=== PATIENT | male | born 1955 | race Two or more races ===

== ENCOUNTER 2020-05-20 09:47 | Emergency (ER) | payer MEDICARE, OTHER ==
[~2020-05-20] VITALS: Ht 170.2 cm; Wt 51.3 kg
[2020-05-20] MEDS ORDERED: ONDANSETRON HCL/PF 4 MG/2 ML VIAL IVP ONE (10:00)
[2020-05-20] MEDS ORDERED: MORPHINE SULFATE INJ 2 MG/ML DISP.SYRIN IV ONE (10:00)
[2020-05-20] MEDS ORDERED: IV NS 0.9% 500 ML BAG IV ONE (10:00)
[2020-05-20] MEDS ORDERED: MORPHINE SULFATE INJ 4 MG/ML DISP.SYRIN ONE (10:34)
[2020-05-20] MEDS ORDERED: ONDANSETRON HCL/PF 4 MG/2 ML VIAL ONE (10:34)
[2020-05-20 10:38] LABS: BASOPHILS # (AUTO) 0.1 /CMM (0.0-0.2); BASOPHILS % (AUTO) 0.9 % (0.0-2.0); EOSINOPHILS % (AUTO) 1.4 % (0.0-6.0); HEMATOCRIT 42 % (39-51); HEMOGLOBIN 14.1 g/dL (13.5-17.5); LYMPHOCYTES % (AUTO) 26.3 % (20.0-44.0); MEAN CORPUSCULAR HGB CONC 34 g/dl (31.0-36.0); MEAN CORPUSCULAR VOLUME 89 fL (80-96); MONOCYTES # (AUTO) 0.6 /CMM (0.1-1.30); MONOCYTES % (AUTO) 8.1 % (2.0-12.0); NEUTROPHILS # (AUTO) 4.8 /CMM (1.8-8.9); NEUTROPHILS % (AUTO) 63.3 % (43.0-81.0); PLATELET COUNT (AUTO) 247 /CMM (150-450); RED BLOOD CELL COUNT(AUTO) 4.73 MIL/uL (4.5-6.0); WHITE BLOOD COUNT (AUTO) 7.5 K/uL (4.3-11.0)
--- NOTE | 2020-05-20 10:46 | NUR ---
Patient awake alert c/c back pain and abd . pain patient has saline lock LAC ,lab draw done and started IVF infusing well .
--- NOTE | 2020-05-20 11:16 | NUR ---
Patient concerned about his belonging wallet ,i did called his Ning [phone] she states I have his wallet coffee shop aide given back to me " Patient appreciated i called his to confirmed .
--- NOTE | 2020-05-20 11:53 | NUR ---
Patient awake alert non distress UA obtained and send to lab .
[2020-05-20 12:11] LABS: ALBUMIN 3.8 g/dL (3.4-5.0); BILIRUBIN,DIRECT 0.2 mg/dL (0.0-0.2); BILIRUBIN,TOTAL 0.4 mg/dL (0.2-1.0); CALCIUM, SERUM 8.6 mg/dL (8.5-10.1); TOTAL PROTEIN, SERUM 6.8 g/dL (6.4-8.2)
[2020-05-20 13:03] LABS: APPEARANCE,URINE CLEAR (CLEAR); BILIRUBIN,URINE NEGATIVE (NEGATIVE); BLOOD, URINE TRACE-INTA Ery/uL (NEGATIVE); COLOR,URINE YELLOW (YELLOW); KETONES,URINE NEGATIVE (NEGATIVE); LEUKOCYTE ESTERASE ,URINE NEGATIVE (NEGATIVE); NITRITE, URINE NEGATIVE (NEGATIVE); PH,URINE 6.5 (5.0-8.0); PROTEIN,URINE NEGATIVE (NEGATIVE); UGLUCOSE NEGATIVE (NEGATIVE); UROBILINOGEN,URINE 0.2 EU/dL (0.2)
[2020-05-20 13:07] LABS: BACTERIA,URINE Rare /HPF (None Seen); SQUAMOUS EPITHELIAL CELL,UR Few /HPF (None Seen); WBC,URINE 0-2 /HPF (0-3)
--- NOTE | 2020-05-20 13:07 | NUR ---
Ana Galvin home intructuion given agrees to see PMD in 1 day I removed saline lock LAc noted cath intact no edema no pain ,patient product picker by his for Dc home .
[2020-05-20 13:31] VITALS: BP 162/103
== END 2020-05-20 13:31 | disposition home or self-care (01) ==
LOC: ER 09:55
DX: N23 Unspecified renal colic (principal); R94.31 Abnormal electrocardiogram [ECG] [EKG]; Z90.89 Acquired absence of other organs; Z87.442 Personal history of urinary calculi
CPT/HCPCS: 36415; 71045; 74176; 80048; 80076; 81001; 83690; 85025; 93005; 96374; 96375; 99285; J2270; J2405; J7030; 81000-TC

== ENCOUNTER 2020-05-22 11:37 | Emergency (ER) | payer MEDICARE, OTHER ==
[~2020-05-22] VITALS: Ht 172.7 cm; Wt 49.0 kg
--- NOTE | 2020-05-22 11:40 | NUR ---
bib39, from home, c/o weakness, shaking, having methadone withdrawal. Patient a/ox4,breathing even and unlabored, no sob noted, needs attended, kept comfortable.
--- NOTE | 2020-05-22 11:41 | NUR ---
YINA DONATO [facility] [phone]
[2020-05-22] MEDS ORDERED: CLONIDINE HCL 0.1 MG TABLET PO ONE (12:00)
[2020-05-22] MEDS ORDERED: hydrOXYzine HCL INJ 50 MG/ML VIAL IM ONE (12:00)
[2020-05-22] MEDS ORDERED: ONDANSETRON 4 MG TAB.RAPDIS SL ONE (12:00)
[2020-05-22] MEDS ORDERED: CLONIDINE HCL 0.1 MG TABLET ONE (12:20)
[2020-05-22] MEDS ORDERED: ONDANSETRON 4 MG TAB.RAPDIS ONE (12:20)
--- NOTE | 2020-05-22 12:26 | NUR ---
[facility]. [phone] JUICE
--- NOTE | 2020-05-22 12:38 | NUR ---
CALLED FOR MOBILE APPLICATION DEVELOPER. ETA 30 MINS.
--- NOTE | 2020-05-22 12:57 | NUR ---
Patient given medications to help with withdrawals. in the waiting room. Prescriptions explained and given to the patient. Patient discharged to home in stable condition. Written and verbal after care instructions given. Patient verbalizes understanding of instruction.
[2020-05-22 12:58] VITALS: BP 132/80
== END 2020-05-22 12:59 | disposition home or self-care (01) ==
LOC: ER 12:19
DX: F11.23 Opioid dependence with withdrawal (principal); R53.1 Weakness; R11.0 Nausea; Z87.442 Personal history of urinary calculi; Z90.89 Acquired absence of other organs
CPT/HCPCS: 99283; Q0162; J3410

== ENCOUNTER 2020-11-20 15:00 | Inpatient (IN) | payer MEDICARE, OTHER ==
[~2020-11-20] VITALS: Ht 175.3 cm; Wt 51.3 kg
--- NOTE | 2020-11-20 15:10 | NUR ---
[id number], from home, c/o flank pain x 2 days, Hx kidney stone, 05/19 PS. Patient a/ox4, breathing even and unlabored, no sob noted. Needs attended. Kept comfortable.
[2020-11-20] MEDS ORDERED: KETOROLAC TROMETHAMINE 15 MG/ML VIAL ONE (15:56)
[2020-11-20 16:00] LABS: BASOPHILS % (AUTO) 0.1 % (0.0-2.0); HEMATOCRIT 38 % (39-51); HEMOGLOBIN 12.8 g/dL (13.5-17.5); LYMPHOCYTES # (AUTO) 0.9 /CMM (0.8-4.8); LYMPHOCYTES % (AUTO) 12.4 % (20.0-44.0); MEAN CORPUSCULAR HGB CONC 34 g/dl (31.0-36.0); MEAN CORPUSCULAR VOLUME 86 fL (80-96); MONOCYTES # (AUTO) 0.4 /CMM (0.1-1.30); MONOCYTES % (AUTO) 5.4 % (2.0-12.0); NEUTROPHILS # (AUTO) 5.9 /CMM (1.8-8.9); NEUTROPHILS % (AUTO) 82.1 % (43.0-81.0); PLATELET COUNT (AUTO) 380 /CMM (150-450); RED BLOOD CELL COUNT(AUTO) 4.42 MIL/uL (4.5-6.0); WHITE BLOOD COUNT (AUTO) 7.3 K/uL (4.3-11.0)
[2020-11-20] MEDS ORDERED: KETOROLAC TROMETHAMINE INJ 30 MG/ML VIAL IV ONE (16:00)
[2020-11-20 16:08] LABS: CALCIUM, SERUM 9.1 mg/dL (8.5-10.1)
[2020-11-20 16:10] LABS: POTASSIUM 2.6 mmol/L (3.5-5.1)
--- NOTE | 2020-11-20 16:11 | NUR ---
LAB CALLED POTASSIUM 2.6 GENER INFORMED
[2020-11-20 16:16] LABS: BILIRUBIN,DIRECT 0.4 mg/dL (0.0-0.2); BILIRUBIN,TOTAL 0.8 mg/dL (0.2-1.0)
[2020-11-20 16:17] LABS: ALBUMIN 3.3 g/dL (3.4-5.0)
--- NOTE | 2020-11-20 16:35 | NUR ---
YINA DONATO [facility] [phone]
[2020-11-20] MEDS ORDERED: HYDROMORPHONE 1 MG/1 ML DISP.SYRIN ONE (16:59)
[2020-11-20] MEDS ORDERED: ONDANSETRON HCL/PF 4 MG/2 ML VIAL ONE (16:59)
[2020-11-20] MEDS ORDERED: HYDROMORPHONE 1 MG/1 ML DISP.SYRIN IV ONE (17:00)
[2020-11-20] MEDS ORDERED: PIPERACILLIN /TAZOBACTAM 3.375 G VIAL IV ONE ×2 (17:00→22:47)
[2020-11-20] MEDS ORDERED: ONDANSETRON HCL/PF - ER 4 MG/2 ML VIAL IV ONE (17:00)
[2020-11-20] MEDS ORDERED: POTASSIUM CL. PREMIX PERIPHER. 200 ML ONE (17:00)
[2020-11-20] MEDS ORDERED: PIPERACILLIN /TAZOBACTAM 3.375 G in IV D5W 50 ML IV ONE (17:00)
[2020-11-20] MEDS: POTASSIUM CL. PREMIX PERIPHER. 50 ML IV SCH ×4 (17:13→20:47)
[2020-11-20] MEDS ORDERED: METH10TA2 PO (17:18)
[2020-11-20 17:19] LABS: BILIRUBIN,URINE MODERATE (NEGATIVE); COLOR,URINE YELLOW (YELLOW); LEUKOCYTE ESTERASE ,URINE NEGATIVE (NEGATIVE); NITRITE, URINE NEGATIVE (NEGATIVE); PROTEIN,URINE 100 mg/dl (NEGATIVE); UGLUCOSE NEGATIVE (NEGATIVE); UROBILINOGEN,URINE 0.2 EU/dL (0.2)
[2020-11-20 17:28] LABS: BACTERIA,URINE Few /HPF (None Seen); RBC,URINE TOO NUMEROUS TO COUN /HPF (0-2); SQUAMOUS EPITHELIAL CELL,UR Few /HPF (None Seen); WBC,URINE 0-2 /HPF (0-3)
[2020-11-20 17:44] LABS: MAGNESIUM 1.5 mg/dL (1.8-2.4)
[2020-11-20] MEDS ORDERED: NS 0.9% IV ONE (18:30)
[2020-11-20] MEDS ORDERED: Magnesium 1GM/D5W 100ML PREMIX 100 ML IV ONE (18:35)
--- NOTE | 2020-11-20 18:47 | NUR ---
LAB CALLED PT COVID RESULT NEGATIVE (-)
[2020-11-20] MEDS: Magnesium 1GM/D5W 100ML PREMIX 100 ML IV SCH ×2 (19:16→20:46)
--- NOTE | 2020-11-20 19:41 | NUR ---
YINA () CONTACT INFORMATION: [phone]
--- NOTE | 2020-11-20 19:53 | NUR ---
REPORT GIVEN TO EDWINA STRAUSS FOR KRISTINA
--- NOTE | 2020-11-20 20:27 | NUR ---
PT TRANSFERRED TO 306 PER ACLS PROTOCOL
[2020-11-20 21:00] VITALS: BP 155/86
--- NOTE | 2020-11-20 21:00 | NUR ---
ADVANCED MANUFACTURING ASSOCIATE ADMITTING NOTES PT ADMITTED TO UNIT VIA LDRCHRYSTAL ACCOMPANIED BY NURSE GILMA. PT IS ALERT AND ORIENTED X2. PT ORIENTED TO STAFF AND ROOM. PT IS ABLE TO MAKE HIS NEEDS KNOWN. PT IS ON ROOM AIR WITH NO RESPIRATORY DISTRESS NOTED. PT HAS IV ACCESS ON HIS LAC AND RAC, BOTH GAUGE#18. SAFETY MEASURES IMPLEMENTED. BED IS IN THE LOWEST LOCKED POSITION WITH BILATERAL SIDE RAILS UP X2. WILL CONTINUE TO MONITOR THE PT.
[2020-11-20] MEDS ORDERED: Z GUARD REMEDY 2 OZ OINT TP PRN (21:30)
[2020-11-20] MEDS ORDERED: IV D5/0.45 NACL 1,000 ML IV PRN (21:30)
[2020-11-20] MEDS ORDERED: ONDANSETRON HCL/PF 4 MG/2 ML VIAL IVP PRN (21:30)
[2020-11-20] MEDS: PANTOPRAZOLE 40 MG VIAL IV SCH (22:15)
[2020-11-21] VITALS (12 sets, daily range): BP systolic 128–172; BP diastolic 73–101
[2020-11-21] MEDS ORDERED: PIPERACILLIN /TAZOBACTAM 3.375 G in IV D5W 50 ML IV SCH
[2020-11-21] MEDS: MORPHINE SULFATE INJ 2 MG/ML DISP.SYRIN IV PRN ×2 (05:00→10:01)
[2020-11-21 06:08] LABS: BASOPHILS % (AUTO) 0.1 % (0.0-2.0); HEMATOCRIT 36 % (39-51); HEMOGLOBIN 12.1 g/dL (13.5-17.5); LYMPHOCYTES # (AUTO) 0.5 /CMM (0.8-4.8); LYMPHOCYTES % (AUTO) 5.3 % (20.0-44.0); MEAN CORPUSCULAR HGB CONC 34 g/dl (31.0-36.0); MEAN CORPUSCULAR VOLUME 86 fL (80-96); MONOCYTES # (AUTO) 0.3 /CMM (0.1-1.30); MONOCYTES % (AUTO) 3.2 % (2.0-12.0); NEUTROPHILS % (AUTO) 91.4 % (43.0-81.0); PLATELET COUNT (AUTO) 304 /CMM (150-450); RED BLOOD CELL COUNT(AUTO) 4.13 MIL/uL (4.5-6.0); WHITE BLOOD COUNT (AUTO) 9.9 K/uL (4.3-11.0)
[2020-11-21 06:19] LABS: CALCIUM, SERUM 8.7 mg/dL (8.5-10.1); CREATININE 0.8 mg/dL (0.6-1.3); MAGNESIUM 2.1 mg/dL (1.8-2.4); PHOSPHORUS 2.2 mg/dL (2.5-4.9); POTASSIUM 2.9 mmol/L (3.5-5.1)
--- NOTE | 2020-11-21 07:30 | NUR ---
PT RECEIVED RESTING COMFORTABLY IN BED. NO S/S OR C/O DISTRESS NOTED. SIDERAILS UP X2, CALL LIGHT LEFT WITHIN REACH. WILL CONTINUE PLAN OF CARE.
[2020-11-21] MEDS ORDERED: PIPERACILLIN /TAZOBACTAM 3.375 G in IV D5W 50 ML IV ONE (08:00)
--- NOTE | 2020-11-21 08:01 | NUR ---
ROAD MACHINE RUNNER CLOSING NOTES PT WAS SEEN AWAKE IN HIS ROOM. PT IS ALERT AND ORIENTED X2. PT ORIENTED TO STAFF AND ROOM. PT IS ABLE TO MAKE HIS NEEDS KNOWN. PT IS ON ROOM AIR WITH NO RESPIRATORY DISTRESS NOTED. PT HAS IV ACCESS ON HIS RAC, GAUGE#18. SAFETY MEASURES IMPLEMENTED. BED IS IN THE LOWEST LOCKED POSITION WITH BILATERAL SIDE RAILS UP X2. WILL CONTINUE TO MONITOR THE PT.
--- NOTE | 2020-11-21 08:03 | NUR ---
WOUND CARE CONSULT: PT SEEN FOR DRY ABRASION TO LEFT KNEE, PRESENT ON ADMISSION. NO TENDERNESS, DRAINAGE OR ERYTHEMA NOTED. WILL SEE PRN. CURRENT ANUPAMA SCORE IS 19.
[2020-11-21] MEDS ORDERED: DIATR MEGLU/DIATRIZOATE SODIUM 30 ML BOTTLE (GASTROGRAPHIN) ONE (08:51)
[2020-11-21] MEDS: PANTOPRAZOLE 40 MG VIAL IV SCH ×2 (10:03→16:17)
[2020-11-21] MEDS ORDERED: IV NS 0.9% 250 ML IV ONE (10:27)
[2020-11-21] MEDS ORDERED: IOHEXOL-300 100 ML VIAL IV ONE (10:27)
[2020-11-21] MEDS ORDERED: POTASSIUM CL. PREMIX PERIPHER. 50 ML IV SCH (11:00)
[2020-11-21 11:33] LABS: BAND % (MANUAL) 11 % (0.0-5.0); LYMPHOCYTES % (MANUAL) 7 % (16-48); MONOCYTES % (MANUAL) 2 % (0-11.0); NEUTROPHILS % (MANUAL) 80 (42-76)
[2020-11-21] MEDS ORDERED: Sodium Phosphate 15 MMOL in IV NS 0.9% 245 ML IV SCH (12:00)
[2020-11-21] MEDS: POTASSIUM CL. PREMIX PERIPHER. 50 ML IV SCH ×3 (12:51→23:59)
[2020-11-21] MEDS ORDERED: HYDROMORPHONE 1 MG/1 ML DISP.SYRIN IV PRN ×2 (13:30)
[2020-11-21] MEDS ORDERED: PIPERACILLIN /TAZOBACTAM 3.375 G in IV D5W 100 ML IV SCH (15:00)
--- NOTE | 2020-11-21 15:30 | NUR ---
PT TO SURGERY
[2020-11-21] MEDS ORDERED: BUPIVACAINE 0.5 % PF 150 MG/30 ML VIAL ONE (15:52)
[2020-11-21] MEDS ORDERED: LIDOCAINE HCL/MPF 1% 30 ML VIAL IJ ONE (15:52)
[2020-11-21] MEDS ORDERED: ANESTHESIA TRAY IN PYXIS 1 EA TRAY MC ONE (15:52)
[2020-11-21] MEDS ORDERED: FENTANYL PF 250MCG/5ML AMPUL ONE ×2 (16:12)
[2020-11-21] MEDS ORDERED: MIDAZOLAM HCL 2 MG/2ML VIAL ONE (16:12)
[2020-11-21] MEDS ORDERED: HYDROMORPHONE INJ 2 MG/ML DISP.SYRIN ONE (16:13)
[2020-11-21] MEDS ORDERED: ROCURONIUM BROMIDE 50 MG/5 ML ONE (16:13)
[2020-11-21] MEDS ORDERED: PHYTONADIONE INJ 10 MG/1 ML AMPUL ONE (16:53)
[2020-11-21] MEDS ORDERED: BUPIVACAINE MPF 0.5% W/EPI INJ 30 ML VIAL ONE (18:02)
--- NOTE | 2020-11-21 18:19 | NUR ---
CHANGE OF SHIFT REPORT PT RESTING COMFORTABLY IN BED. NO S/S OR C/O PAIN OR DISTRESS NOTED. SIDE RAILS UP X2. CALL LIGHT LEFT WITHIN REACH. PT KEPT CLEAN, DRY, AND COMFORTABLE NO SIGNIFICANT CHANGES SINCE PREVIOUS SHIFT. WILL GIVE REPORT TO JACOB BLAND. Addendum: 11/21/20 at 1820 by PERCY AVILES RN WRONG PT
--- NOTE | 2020-11-21 18:20 | NUR ---
CHANGE OF SHIFT REPORT PT IN SURGERY
[2020-11-21] MEDS ORDERED: BACITRACIN ZINC OINT (15 GM) 15 GM TUBE TP ONE (18:29)
--- NOTE | 2020-11-21 19:24 | NUR ---
RN NOTES PT IS IN SURGERY
--- NOTE | 2020-11-21 20:30 | NUR ---
RCVD PT ORALLY INTUBATED FROM PACU TO ICU WITH ETT 8.0 SECURED @ 23 CM LIP LINE. AND PLACED ON VENT WITH THE SETTINGS OF AC 12 , VT 500, PEEP 5, FIO2 100%.SUCTION SMALL AMOUNT OF YELLOW THICK SECRETIONS .EQUAL BILATERAL BREATH SOUNDS NOTED.. VENT PLUGGED INTO RED OUTLET, VENT ALARMS SET AND AUDIBLE. WILL CONTINUE TO MONITOR PT T/O SHIFT.
--- NOTE | 2020-11-21 20:40 | NUR ---
RECEIVED PT FROM PACU INTUBATED AND ON VENT WITH CURRENT SETTING OF AC 12 TV 500 FIO2 100% PEEP OF 5 SPO2 100% , HAVE COBIAN CATHETER WITH SUZI COLOR URINE DRAINING VIA GRAVITY, PT IS SEDATED, NO RESPONSE TO EVEN DEEP PAIN STIMULI, HAVE CORNEAL RESPONSES ADRI 3, HOOKE TO BED SIDE MONITOR WITH READING SINUS RHYTHM 70'S BP IS ON HIGH 170/110 PT HAVE R NARES NGTUBE CONNECTED TO LOW INTERMITTENT SUCTION WITH GREENISH GASTRIC OUT PUT, PUT BED ON LOWEST POSITION AND LOCKED SIDE RAILS UP X2 WILL CONT TO MONITOR
--- NOTE | 2020-11-21 20:45 | NUR ---
REPORTED TO KOLBY DAVIS MMA FIGHTER THAT PT BLOOD PRESSURE IS HIGH AND HE DONT HAVE ANY PRN MED WITH LATEST BP OF 170/110 AND THERES A KCL ORDER SINCE MORNING THAT THEY DIDNT ADMINISTER BECAUSE PT GO TO THE EX LAP PROCEDURE, SEEN AND EXAMINE MMA FIGHTER ROSITA DAVIS HE MADE AN ORDER FOR PRN BP MEDS AND HE ORDER K+ LVL FIRST BEFORE WE DECIDE IF WE WILL CONT TO GIVE THE KCL THAT BEEN ORDER THIS AM, NOTED AND CARRIED OUT
[2020-11-21] MEDS: IV LR 1000 ML 1,000 ML IV PRN (20:52)
[2020-11-21] MEDS: PIPERACILLIN /TAZOBACTAM 3.375 G in IV D5W 100 ML IV SCH (21:25)
--- NOTE | 2020-11-21 21:30 | NUR ---
POST ABG DONE
[2020-11-21 21:59] LABS: ABG BASE EXCESS -1.2 mmol/L; ABG OXYGEN SATURATION 99.7 % (92.0-98.5); ABG PCO2 46.8 mmHg (35.0-45.0); ABG PH 7.342 (7.350-7.450); ABG PO2 539.1 mmHg (75.0-100.0); AaDO2 127.1 mmHg; COHb 0.4 % (0.5-1.5); MetHb 0.3 % (0.0-1.5); PEEP,BG 5 cm H2O; SITE, ABG Left Radial; VT, ABG 500 mL
[2020-11-21] MEDS: ENALAPRILAT INJ (1.25 MG/ML) 1.25 MG/ML VIAL IV PRN (22:06)
--- NOTE | 2020-11-21 22:39 | NUR ---
K+ 2.9 REPORTED TO ROSITA DAVIS NP WITH ORDER TO GIVE THE REMAINING 5 BAGS OF KCL ORDERED THIS AM NOTED AND CARRIED OUT
[2020-11-21] MEDS ORDERED: FLUCONAZOLE IN NS 100 ML IV ONE (22:43)
[2020-11-21] MEDS: FLUCONAZOLE IN NS 200 MG in PREMIX 1 EA IV SCH (22:55)
[2020-11-22] VITALS (46 sets, daily range): BP systolic 93–183; BP diastolic 66–108
--- NOTE | 2020-11-22 00:41 | NUR ---
PT IS STARTING TO WAKE UP NOW HE IS MOVING HIS HANDS AND HIS MOUTH, INFORMED BED CONTROL SPECIALIST ROSITA DAVIS NP AND ASK FOR AN ORDER FOR PROPOFOL AND BILATERAL WRIST RESTRAINST NOTED AND CARRIED OUT
[2020-11-22] MEDS: HYDROMORPHONE 1 MG/1 ML DISP.SYRIN IV PRN ×5 (00:44→21:47)
[2020-11-22] MEDS ORDERED: PROPOFOL 100 ML IV PRN (01:00)
[2020-11-22] MEDS: POTASSIUM CL. PREMIX PERIPHER. 50 ML IV SCH ×3 (01:35→03:40)
[2020-11-22] MEDS: PIPERACILLIN /TAZOBACTAM 3.375 G in IV D5W 100 ML IV SCH ×3 (05:02→20:05)
[2020-11-22] MEDS: IV LR 1000 ML 1,000 ML IV PRN ×3 (05:03→23:17)
[2020-11-22] MEDS: ENALAPRILAT INJ (1.25 MG/ML) 1.25 MG/ML VIAL IV PRN (05:32)
--- NOTE | 2020-11-22 06:49 | NUR ---
PT ON BED STILL ON ETT/VENT SETTING PER MD FIO2 40% SPO2 100% NO SIGN AND SYMPTOMS OF RESPIRATORY DISTRESS, STILL ON PROPOFOL 10MCG/KG/MIN MINIMAL SEDATION, BEDSIDE MONITOR READS SINUS RHYTHM 70'S HAVE BILATERAL WRIST RESTRAINTS CIRCULATION WAS CHECKED, ALL NEEDS ATTENDED, BED ON LOWEST POSITION AND LOCKED SIDE RAILS UP X2 CALL LIGHT WITHIN REACH WILL ENDORSED TO AM SHIFT NURSE
--- NOTE | 2020-11-22 07:05 | NUR ---
RN NOTES RECEIVED PT ON BED, INTUBATED, TOLERATING VENT SETTING WELL, O2 SAT WNL, ON TELE SR HR IN 70'S, R NARES NGT ATTACHED TO LIS, WITH DARK GREENISH DRAINAGE, PT IS NPO , COLOSTOMY INTACT , NO OUTPUT NOTED , DRESSING TO ABDOMEN CLEAN, DRY AND INTACT, IV SITES , DRY , CLEAN, INTACT, DIPRIVAN AT 10 MCG/KG/MIN AND LR AT 125CC/HR RUNNING , SR UP x3, CALL LIGHT WITHIN EASY REACH, BED LOCKED AND IN LOWEST POSITION, CONTINUE TO MONITOR .
[2020-11-22 07:14] LABS: BASOPHILS % (AUTO) 0.1 % (0.0-2.0); EOSINOPHILS % (AUTO) 0.1 % (0.0-6.0); HEMATOCRIT 38 % (39-51); HEMOGLOBIN 12.7 g/dL (13.5-17.5); LYMPHOCYTES # (AUTO) 0.5 /CMM (0.8-4.8); LYMPHOCYTES % (AUTO) 3.3 % (20.0-44.0); MEAN CORPUSCULAR HGB CONC 34 g/dl (31.0-36.0); MEAN CORPUSCULAR VOLUME 86 fL (80-96); MONOCYTES # (AUTO) 0.5 /CMM (0.1-1.30); MONOCYTES % (AUTO) 3.6 % (2.0-12.0); NEUTROPHILS # (AUTO) 13.6 /CMM (1.8-8.9); NEUTROPHILS % (AUTO) 92.9 % (43.0-81.0); PLATELET COUNT (AUTO) 254 /CMM (150-450); RED BLOOD CELL COUNT(AUTO) 4.37 MIL/uL (4.5-6.0); WHITE BLOOD COUNT (AUTO) 14.6 K/uL (4.3-11.0)
[2020-11-22] MEDS: PANTOPRAZOLE 40 MG VIAL IV SCH (08:14)
[2020-11-22 08:25] LABS: CALCIUM, SERUM 8.2 mg/dL (8.5-10.1); CREATININE 0.7 mg/dL (0.6-1.3); MAGNESIUM 1.8 mg/dL (1.8-2.4); PHOSPHORUS 2.9 mg/dL (2.5-4.9); POTASSIUM 3.8 mmol/L (3.5-5.1)
[2020-11-22] MEDS ORDERED: DC PROPOFOL WHEN EXTUBATED XX PRN (09:00)
[2020-11-22 09:38] LABS: ABG OXYGEN SATURATION 99.1 % (92.0-98.5); ABG PCO2 38.5 mmHg (35.0-45.0); ABG PH 7.464 (7.350-7.450); ABG PO2 183.6 mmHg (75.0-100.0); SITE, ABG Left Radial
[2020-11-22 09:39] LABS: ABG BASE EXCESS 3.1 mmol/L; AaDO2 57.3 mmHg; COHb 0.1 % (0.5-1.5); MetHb 0.2 % (0.0-1.5); O2Hb 98.8 % (94.0-97.0); PEEP,BG 5 cm H2O
[2020-11-22 09:44] LABS: BAND % (MANUAL) 12 % (0.0-5.0); LYMPHOCYTES % (MANUAL) 3 % (16-48); MONOCYTES % (MANUAL) 3 % (0-11.0); NEUTROPHILS % (MANUAL) 82 (42-76)
[2020-11-22] MEDS ORDERED: Magnesium 1GM/D5W 100ML PREMIX PIGGYBACK IV ONE (10:00)
--- NOTE | 2020-11-22 10:04 | NUR ---
RN NOTES PT EXTUBATED PER DR ADHIKARI ORDER , NO RESPIRATORY DISTRESS NOTED , PT IS A/Ox 3-4, CONTINUE TO MONITOR .
--- NOTE | 2020-11-22 10:04 | NUR ---
RT NOTE PT EXTUBATED WITH NO COMPLICATIONS, PER MD PELEG ORDER. PT AWAKE, ALERT AND FOLLOWS COMMAND. PT HAS STRONG COUGH AND NO SIGNS OF STRIDOR. PT PLACED ON 3L NC POST EXTUBATION. SpO2 100% AND HR 99. CHARGE NURSE VALENTINA AND RN RITO AWARE. NO RESPIRATORY DISTRESS OR SOB NOTED.
[2020-11-22] MEDS: Magnesium 1GM/D5W 100ML PREMIX 100 ML IV SCH ×2 (10:06→11:12)
[2020-11-22] MEDS: METOCLOPRAMIDE HCL 10 MG/2 ML VIAL IV PRN (10:52)
[2020-11-22] MEDS: KETOROLAC TROMETHAMINE INJ 30 MG/ML VIAL IV PRN (12:00)
--- NOTE | 2020-11-22 15:31 | NUR ---
RN NOTES PT PULLED HIS NGT OUT AND STATED IT WAS NOT COMFORTABLE. DR NGHIA BARNES. ORDER RECEIVED TO LEAVE NGT OUT . CONTINUE TO MONITOR.
--- NOTE | 2020-11-22 18:24 | NUR ---
RN NOTES PT REMANINS STABLE, O2 SAT WNL, REFUSES TO USE O2 AT TIMES, VSS STABLE, COBIAN DRINING TO GRAVITY, DRESSING AND COLOSTOMY TO ABD INTACT , NO BM NOTED, LR AT 125CC/HR RUNNING, SR UP x3, CALL LIGHT WITHIN EASY REACH, BED LOCKED AND IN LOWEST POSITION, WILL ENDORSE TO GRADES 9 12 TUTOR NURSE FOR CONTINUITY OF CARE .
--- NOTE | 2020-11-22 19:30 | NUR ---
RN NOTES RECEIVED PATIENT IN BED AOX4, ON RA SATURATING 97% AT THIS TIME. TELE MONITOR SHOWS SR HR IN 70'S. IV SITE L HAND #22G, RT HAND #22, RT WRIST #18, INTACT PATENT NO INFILTRATION NOTED FLUSHING WELL. ABD SOFT AND NON DISTENDED COLOSTOMY INTACT. SKIN DRY AND INTACT. SAFETY MEASURES IN PLACE, CALL LIGHT WITHIN REACH. WILL CONT TO MONITOR FOR KRISTINA.
[2020-11-22] MEDS ORDERED: POLYVINYL ALCOHOL 15 ML BOTTLE EACHEYE PRN (20:00)
[2020-11-22] MEDS: FLUCONAZOLE IN NS 200 MG in PREMIX 1 EA IV SCH (22:37)
[2020-11-23] VITALS (23 sets, daily range): BP systolic 115–155; BP diastolic 70–97
[2020-11-23] MEDS: HYDROMORPHONE 1 MG/1 ML DISP.SYRIN IV PRN ×5 (03:24→19:31)
[2020-11-23] MEDS: PIPERACILLIN /TAZOBACTAM 3.375 G in IV D5W 100 ML IV SCH ×3 (05:03→20:55)
--- NOTE | 2020-11-23 06:35 | NUR ---
RN NOTES NO CHANGES NOTED DURING SHIFT. NO S/S OF ACUTE DISTRESS NOTED. ROUTINE AND PRN MEDICATIONS WERE GIVEN TOLERATED WELL. IV SITES INTACT NO S/S OF BLEEDING NO SWELLING NOTED. VITAL SIGNS WNL. ON RA SATURATING 100%. KEPT CLEAN DRY AND COMFORTABLE. ALL NEEDS ATTENDED. WILL ENDORSE TO AM SHIFT FOR KRISTINA.
--- NOTE | 2020-11-23 07:10 | NUR ---
CATERING STAFF MEMBER NOTES RECEIVED PATIENT AOX3 , NOT IN ACUTE DISTRESS , DENIES SOB AND DISCOMFORT AT THIS TIME , SPO2 OF 95% VIA RA , SR 85 ON BEDSIDE MONITOR , COLOSTOMY INTACT DRAINING WITH LIQUID PINKISH OUTPUT , FC DRAINING VIA GRAVITY , ABDOMINAL DRESSING PATENT AND INTACT NO BLEEDING NOTED , IV OF L HAND #22 AND R HAND # 22 PATENT AND INTACT , R WRIST # 18 PATENT AND INTACT WITH LR @ 125ML/HR INFUSING WELL . ALL NEEDS ATTENDED , WILL CONTINUE TO MONITOR ,
[2020-11-23] MEDS: PANTOPRAZOLE 40 MG VIAL IV SCH (08:20)
[2020-11-23] MEDS: IV LR 1000 ML 1,000 ML IV PRN ×2 (09:21→16:38)
--- NOTE | 2020-11-23 09:26 | NUR ---
SAMPLE SUPERVISOR NOTES NOTIFIED DR SARGENT THAT PT IS AOX3 , F/U DIET ORDER PT IS STILL NPO , PER MD OK TO START CLEAR LIQUID DIET NOTIFIED KAJAL CANTU THAT PT WILL BE ON CLEAR LIQUID DIET , PT IS ON METHADONE PO , FOLLOWED UP IF HE WANTS TO CONTINUE IT , AWAITING FOR CALL BACK
[2020-11-23] MEDS: KETOROLAC TROMETHAMINE INJ 30 MG/ML VIAL IV PRN (09:33)
[2020-11-23 09:41] LABS: BASOPHILS % (AUTO) 0.6 % (0.0-2.0); HEMATOCRIT 34 % (39-51); HEMOGLOBIN 11.5 g/dL (13.5-17.5); LYMPHOCYTES # (AUTO) 0.6 /CMM (0.8-4.8); LYMPHOCYTES % (AUTO) 9.6 % (20.0-44.0); MEAN CORPUSCULAR HGB CONC 34 g/dl (31.0-36.0); MEAN CORPUSCULAR VOLUME 89 fL (80-96); MONOCYTES # (AUTO) 0.1 /CMM (0.1-1.30); MONOCYTES % (AUTO) 1.2 % (2.0-12.0); NEUTROPHILS # (AUTO) 5.5 /CMM (1.8-8.9); NEUTROPHILS % (AUTO) 88.6 % (43.0-81.0); PLATELET COUNT (AUTO) 223 /CMM (150-450); RED BLOOD CELL COUNT(AUTO) 3.85 MIL/uL (4.5-6.0); WHITE BLOOD COUNT (AUTO) 6.2 K/uL (4.3-11.0)
[2020-11-23 09:51] LABS: CALCIUM, SERUM 7.8 mg/dL (8.5-10.1); CREATININE 0.7 mg/dL (0.6-1.3); MAGNESIUM 1.7 mg/dL (1.8-2.4); POTASSIUM 3.7 mmol/L (3.5-5.1)
--- NOTE | 2020-11-23 10:30 | NUR ---
DOCUMENTUM CONSULTANT NOTES NOTIFIED ROCK DRILL OPERATOR CANTU THAT PT IS ANXIOUS ABOUT HIS METHADONE HE IS SCARRED TO BE IN WITHDRAWAL , DILAUDID AND TORADOL IVP ORDERED GIVEN , ICE CHIPS PROVIDED PT TOLERATED WELL , ROCK DRILL OPERATOR AWARE .
[2020-11-23] MEDS ORDERED: Magnesium 1GM/D5W 100ML PREMIX PIGGYBACK IV ONE (11:30)
--- NOTE | 2020-11-23 12:59 | NUR ---
BOWL TOPPER NOTES REPORT GIVEN TO NILS BLAND FOR CONTINUITY OF CARE , ALL QUESTIONS ANSWERED .
--- NOTE | 2020-11-23 13:22 | NUR ---
LEAD FRONT DESK AGENT NOTES TRANSFERRED PT TO ROOM 109 IN A STABLE CONDITION , NO ACUTE EVENTS NOTED , PIC INTACT , IVF INFUSING , PT ON MS STATUS
--- NOTE | 2020-11-23 13:23 | NUR ---
RN NOTES RECEIVED PT FROM ICU VIA BED. PT A/O, ON ROOM AIR. NO SOB NOTED. IV LINES IN PLACE. COLOSTOMY AND COBIAN IN PLACE. PT COMFORTABLE. CALL LIGHT WITHIN REACH. WILL MONITOR
--- NOTE | 2020-11-23 18:45 | NUR ---
RN CLOSING NOTES NO SIGNIFICANT CHANGE NOTED. NO SOB NOTED. GIVEN PAIN MED ORDERED, NOTED EFFECTIVE. KEPT COMFORTABLE. WILL ENDORSE FOR CONTINUITY IF CARE
--- NOTE | 2020-11-23 19:00 | NUR ---
RN NOTE RECEIVED PATIENT IN BED, AO X 4, IN NO S/SX OF ACUTE DISTRESS AT THIS TIME. NO SOB NOTED. PATIENT'S BREATHING IS EVEN AND UNLABORED. SATURATION AT 93% ON ROOM AIR, HR IS 83. NOTED IV SITE AT L HAND 22G, R HAND 22G, R WRIST 18G, ALL HUBS PATENT AND FLUSHING, ,NO S/S OF INFECTION OR INFILTRATION, WITH IV FLUID OF LR INFUSING AT 75 ML/HR. COBIAN CATHETER CONNECTED TO URINE BAG IN PLACE, DRAINING TO A CLEAR, YELLOW OUTPUT. SAFETY MEASURES IMPLEMENTED. PATIENT BED ALARM IS ON. HEAD OF BED ELEVATED. BED IS LOCKED, IN LOWEST POSITION AND SIDE RAILS UP. CALL LIGHT WITHIN REACH OF THE PATIENT. WILL CONTINUE TO MONITOR AND REASSESS FOR ANY CHANGES.
[2020-11-23] MEDS: FLUCONAZOLE IN NS 200 MG in PREMIX 1 EA IV SCH (23:01)
[2020-11-24] MEDS: IV LR 1000 ML 1,000 ML IV PRN ×2 (01:20→16:25)
[2020-11-24] MEDS: HYDROMORPHONE 1 MG/1 ML DISP.SYRIN IV PRN ×10 (02:34→22:40)
[2020-11-24] MEDS: PIPERACILLIN /TAZOBACTAM 3.375 G in IV D5W 100 ML IV SCH ×3 (05:04→20:28)
[2020-11-24] MEDS: KETOROLAC TROMETHAMINE INJ 30 MG/ML VIAL IV PRN ×2 (06:10→17:13)
[2020-11-24 06:30] LABS: BASOPHILS % (AUTO) 0.6 % (0.0-2.0); EOSINOPHILS % (AUTO) 0.1 % (0.0-6.0); HEMATOCRIT 29 % (39-51); HEMOGLOBIN 10.2 g/dL (13.5-17.5); LYMPHOCYTES # (AUTO) 0.4 /CMM (0.8-4.8); LYMPHOCYTES % (AUTO) 4.3 % (20.0-44.0); MEAN CORPUSCULAR HGB CONC 35 g/dl (31.0-36.0); MEAN CORPUSCULAR VOLUME 85 fL (80-96); MONOCYTES # (AUTO) 0.5 /CMM (0.1-1.30); MONOCYTES % (AUTO) 5.6 % (2.0-12.0); NEUTROPHILS # (AUTO) 7.4 /CMM (1.8-8.9); NEUTROPHILS % (AUTO) 89.4 % (43.0-81.0); PLATELET COUNT (AUTO) 193 /CMM (150-450); RED BLOOD CELL COUNT(AUTO) 3.43 MIL/uL (4.5-6.0); WHITE BLOOD COUNT (AUTO) 8.3 K/uL (4.3-11.0)
[2020-11-24 07:05] LABS: CALCIUM, SERUM 7.4 mg/dL (8.5-10.1); CREATININE 0.5 mg/dL (0.6-1.3); MAGNESIUM 1.8 mg/dL (1.8-2.4); POTASSIUM 3.1 mmol/L (3.5-5.1)
--- NOTE | 2020-11-24 07:05 | NUR ---
RN NOTE PATIENT REMAINS IN BED, NO ACUTE DISTRESS NOTED, SATURATION AT 94% ON ROOM AIR. IV FLUID OF LR INFUSING AT 125 ML/HR VIA LEFT HAND 20G. ALL NEEDS ATTENDED. SAFETY MEASURES IMPLEMENTED. PATIENT BED IS LOCKED AND IN LOWEST POSITION. SIDE RAILS UP. CALL LIGHT WITHIN REACH OF THE PATIENT. ENDORSED TO VIC BLAND FOR CONTINUATION OF CARE.
[2020-11-24 08:00] VITALS: BP 136/88
--- NOTE | 2020-11-24 08:20 | NUR ---
RN Note: Pt received alert awake oriented X 3. On RA, no breathing distress noted. Pain/Discomfort surgical site abdominal, tolerable at this time. IV site intact, IV fluids running as ordered. F/C draining well with gravity. Encourage pt to use call light for assistance. Call light within reach.
[2020-11-24] MEDS: PANTOPRAZOLE 40 MG VIAL IV SCH (09:16)
[2020-11-24] MEDS: POTASSIUM CL. PREMIX PERIPHER. 50 ML IV SCH ×4 (11:23→15:59)
[2020-11-24 16:00] VITALS: BP 156/92
[2020-11-24] MEDS: METOCLOPRAMIDE HCL 10 MG/2 ML VIAL IV PRN ×2 (16:25→19:49)
[2020-11-24] MEDS ORDERED: ACETAMINOPHEN 325 MG TABLET PO SCH (19:00)
[2020-11-24] MEDS: ACETAMINOPHEN 325 MG TABLET PO SCH (19:50)
[2020-11-24] MEDS: GABAPENTIN 300 MG CAPSULE PO SCH (19:50)
[2020-11-24 20:00] VITALS: BP 152/91
[2020-11-24] MEDS: IBUPROFEN 600 MG TABLET PO SCH (20:28)
[2020-11-24] MEDS: FLUCONAZOLE IN NS 200 MG in PREMIX 1 EA IV SCH (21:31)
[2020-11-25] MEDS: HYDROMORPHONE 1 MG/1 ML DISP.SYRIN IV PRN ×9 (01:06→22:26)
[2020-11-25] MEDS: IV LR 1000 ML 1,000 ML IV PRN ×3 (02:53→17:55)
[2020-11-25 04:00] VITALS: BP 137/96
[2020-11-25] MEDS: GABAPENTIN 300 MG CAPSULE PO SCH ×3 (05:40→21:03)
[2020-11-25] MEDS: IBUPROFEN 600 MG TABLET PO SCH ×3 (05:40→21:03)
[2020-11-25] MEDS: PIPERACILLIN /TAZOBACTAM 3.375 G in IV D5W 100 ML IV SCH ×3 (05:40→20:07)
[2020-11-25] MEDS: ACETAMINOPHEN 325 MG TABLET PO SCH ×3 (05:40→21:03)
--- NOTE | 2020-11-25 06:32 | NUR ---
MS RN NOTES AWAKE & RESPONSIVE. NOT IN ANY DISTRESS. NO SOB NOTED. DENIES ANY PAIN OR DISCOMFORT AT THIS TIME. WITH IVF INFUSING WELL. MONITORED ACCORDINGLY. CALL LIGHT WITHIN REACH. BED IN LOWEST POSITION. SR UP X 3 FOR SAFETY. WILL ENDORSE TO NEXT SHIFT.
[2020-11-25 06:39] LABS: CALCIUM, SERUM 7.2 mg/dL (8.5-10.1); CREATININE 0.6 mg/dL (0.6-1.3); POTASSIUM 2.9 mmol/L (3.5-5.1)
--- NOTE | 2020-11-25 07:45 | NUR ---
REGISTERED CLIENT ASSOCIATE OPENING NOTES RECEIVED PT ON BED, ASLEEP BUT EASILY AROUSABLE, RESPONSIVE TO ALL STIMULI. RESPIRATION EVEN AND NON LABORED WITH NO ACUTE RESPIRATORY DISTRESS, ON O2 AT 3LPM VIA N/C. ABD SOFT AND NON DISTENDED WITH ACTIVE BOWEL SOUNDS. C/O PAIN AT MID ABD INCISION SITE. SKIN WARM TO TOUCH AND DRY. COLOSTOMY BAG IN PLACE, AIR PRESENCE, NO STOOL ASSESS. IV SITE AT LEFT HAND # 22, RIGHT HAND #22, RIGHT WRIST #18, PATENT IN FLUSHING, NO S/SX OF INFILTRATION, IVF LR @ 125 ML/HR. ALL CONCERNS ATTENDED. BED IN LOW LOCKED POSITION, CALL LIGHT WITHIN REACHED, SRX2 UP FOR SAFETY. WILL CONT TO MONITOR CARE.
[2020-11-25 08:00] VITALS: BP 153/89
[2020-11-25] MEDS: PANTOPRAZOLE 40 MG VIAL IV SCH (08:20)
[2020-11-25 09:01] VITALS: BP 153/89
[2020-11-25] MEDS: POTASSIUM CHLORIDE 20 MEQ TAB.PRT.SR PO SCH ×3 (10:40→12:41)
[2020-11-25] MEDS: ENSURE CLEAR 237 ML LIQUID (MIX BERRY) PO SCH ×2 (12:21→17:30)
[2020-11-25 16:00] VITALS: BP 130/83
[2020-11-25 16:31] VITALS: BP 130/83
--- NOTE | 2020-11-25 18:52 | NUR ---
M/S RN CLOSING NOTES PT AAOX4, ON 2 LPM NASAL CANNULA SATING 94-98%. COLOSTOMY BAG IN PLACED, INTACT, RED FLUID SECRETION, NO FORM BM, ON CLEAR LIQUID DIET TOLERATING >75% INTAKE. PAIN MANAGED BY MEDICATION PRESCRIBED. NO NEW SKIN BREAKDOWN, ABD INCISION DRESSING CLEAN AND INTACT, FC OUTPUT YELLOW. IV SITES PATENT IN FLUSHING, NO S/SX OF INFILTRATION, IVF LR @ 125 ML/HR. ALL CONCERNS ATTENDED. BED KEPT IN LOW LOCKED POSITION, SRX2 UP FOR SAFETY, HOB ELEVATED POSITION. ALL CARE ATTENDED. ENDORSED CARE TO NEXT SHIFT.
[2020-11-25 20:00] VITALS: BP 114/81
[2020-11-25] MEDS: FLUCONAZOLE IN NS 200 MG in PREMIX 1 EA IV SCH (21:04)
[2020-11-26] MEDS: HYDROMORPHONE 1 MG/1 ML DISP.SYRIN IV PRN ×5 (00:31→11:03)
--- NOTE | 2020-11-26 02:37 | NUR ---
MS RN OPENING NOTE RECEIVED PATIENT IN BED. A/OX3. ON OXYGEN 2L/MIN VIA NASAL CANNULA. PATIENT REMOVES NASAL CANNULA CONSTANTLY. RESPIRATIONS ARE EVEN AND UNLABORED. NO S/S SOB NOTED. STATES HE IS IN PAIN, INFORMED HIM PAIN MEDICATION IS NOT DUE AT THIS TIME. IN NO APPARENT DISTRESS. IV ACCESS IN LEFT WRIST PATENT AND SALINE LOCKED, AND RIGHT WRIST AND RIGHT HAND RUNNING LR@125ML/HR. COBIAN CATHETER IS PRESENT, DRAINING TO GRAVITY, URINE IS YELLOW AND CLEAR. BED IS LOW AND LOCKED, HOB ELEVATED IN SEMI FOWLERS, SIDE RAILS UP X2, CALL LIGHT WITHIN REACH. WILL CONTINUE TO MONITOR THROUGHOUT SHIFT.
[2020-11-26] MEDS: IV LR 1000 ML 1,000 ML IV PRN (02:53)
[2020-11-26 04:00] VITALS: BP 159/95
[2020-11-26] MEDS: PIPERACILLIN /TAZOBACTAM 3.375 G in IV D5W 100 ML IV SCH ×3 (04:52→20:59)
[2020-11-26] MEDS: ACETAMINOPHEN 325 MG TABLET PO SCH ×3 (05:41→20:59)
[2020-11-26] MEDS: IBUPROFEN 600 MG TABLET PO SCH ×3 (05:41→20:58)
[2020-11-26] MEDS: GABAPENTIN 300 MG CAPSULE PO SCH ×3 (05:41→20:59)
--- NOTE | 2020-11-26 06:17 | NUR ---
MS RN CLOSING NOTE PATIENT RESTING IN BED. A/OX3. USES OXYGEN PRN. NO RESP DISTRESS. STATED HE DOES FEEL SOB BUT HE STATES ITS MORE LIKE ANXIETY. MANAGED PAIN WITH DILAUDID Q2HR. NO DISTRESS. IV ACCESS CHANGED TO LAC#20 AND RFA#20 RUNNING LR@125ML/HR. COBIAN CATHETER IS MAINTAINED, OUTPUT 1800ML. BED REMAINS LOW AND LOCKED, HOB ELEVATED IN SEMI FOWLERS, SIDE RAILS UP X2, CALL LIGHT WITHIN REACH. WILL ENDORSE TO ONCOMING SHIFT.
[2020-11-26 06:31] LABS: BASOPHILS # (AUTO) 0.1 /CMM (0.0-0.2); BASOPHILS % (AUTO) 1.3 % (0.0-2.0); EOSINOPHILS % (AUTO) 0.6 % (0.0-6.0); HEMATOCRIT 36 % (39-51); LYMPHOCYTES # (AUTO) 1.1 /CMM (0.8-4.8); MEAN CORPUSCULAR HGB CONC 34 g/dl (31.0-36.0); MEAN CORPUSCULAR VOLUME 86 fL (80-96); MONOCYTES # (AUTO) 1.4 /CMM (0.1-1.30); MONOCYTES % (AUTO) 13.2 % (2.0-12.0); NEUTROPHILS % (AUTO) 74.9 % (43.0-81.0); PLATELET COUNT (AUTO) 178 /CMM (150-450); RED BLOOD CELL COUNT(AUTO) 4.14 MIL/uL (4.5-6.0); WHITE BLOOD COUNT (AUTO) 10.7 K/uL (4.3-11.0)
[2020-11-26 06:35] LABS: CALCIUM, SERUM 7.4 mg/dL (8.5-10.1); CREATININE 0.5 mg/dL (0.6-1.3); MAGNESIUM 1.5 mg/dL (1.8-2.4); POTASSIUM 3.9 mmol/L (3.5-5.1)
--- NOTE | 2020-11-26 07:30 | NUR ---
RN OPENING NOTE RECEIVED PATIENT IN BED. A/OX3. ON NC 2LPM WITH NO SIGNS OF REP DISTRESS OR SOB, BREATHING EVEN AND UNLABORED, SPO2 97%. PT STATES HE IS IN PAIN, WILL ADMIN DILAUDID ORDERED. PT'S IS BEDSIDE STATING PT GETS 70MG METHADONE PO DAILY AND IS WORKING ON GETTING THE PAPERWORK FROM PT'S FACILITY, WILL F/U WITH. PT IV ACCESS IN LEFT WRIST PATENT AND SALINE LOCKED, AND RIGHT WRIST AND RIGHT HAND RUNNING LR@125ML/HR. COBIAN CATHETER IS PRESENT, DRAINING TO GRAVITY, URINE IS YELLOW AND CLEAR. PT LLQ COLOSTOMY IN PLACE, LT KNEE WOUND AND ABD INCISION DRSG INTACT. ALL PT SAFETY MEASURES IN PLACE, BED IS LOW AND LOCKED, HOB ELEVATED IN SEMI FOWLERS, SIDE RAILS UP X2, CALL LIGHT WITHIN REACH. WILL CONTINUE TO MONITOR THROUGHOUT SHIFT
[2020-11-26 08:00] VITALS: BP 158/93
[2020-11-26] MEDS: PANTOPRAZOLE 40 MG VIAL IV SCH (08:26)
[2020-11-26] MEDS: ENSURE CLEAR 237 ML LIQUID (MIX BERRY) PO SCH ×2 (09:47→13:01)
--- NOTE | 2020-11-26 10:36 | NUR ---
RN NOTE PER VP [employer] WILEY CANTU, METHADONE WILL INTERFERE WITH PT'S DIFLUCAN, PT HAS DILAUDID CURRENTLY ORDERED
[2020-11-26] MEDS: Magnesium 1GM/D5W 100ML PREMIX 100 ML IV SCH ×2 (10:43→11:48)
[2020-11-26] MEDS ORDERED: MORPHINE SULFATE INJ 4 MG/ML DISP.SYRIN IV PRN (12:00)
[2020-11-26] MEDS: METHADONE HCL 10 MG TABLET PO SCH (12:40)
[2020-11-26 16:00] VITALS: BP 133/86
[2020-11-26] MEDS: ENSURE ENLIVE CHOC 237 ML CAN PO SCH (17:35)
--- NOTE | 2020-11-26 18:43 | NUR ---
RN CLOSING NOTE PT WAS GIVEN METHADONE 70MG AT 1245 TODAY. PT IN STABLE CONDITION WITH NO MAJOR CHANGES DURING SHIFT. PT NOW ON REGULAR DIET AND ABLE TO EAT/SWALLOW WELL. NO SIGNS OF RESP DISTRESS OR SOB. ALL PT SAFETY PRECAUTIONS IN PLACE, WILL ENDORSE KRISTINA TO ONCOMING RN
--- NOTE | 2020-11-26 19:30 | NUR ---
MS RN OPENING NOTE PATIENT IN BED. A/OX3. OXYGEN 2L/MIN VIA NASAL CANNULA. RESP EVEN AND UNLABORED. NO C/O PAIN AT THIS TIME. IN NO APPARENT DISTRESS. IV ACCESS IN LAC#20 AND RFA#20 RUNNING LR@125ML/HR. COBIAN CATHETER DRAINING TO GRAVITY. BED IS LOW AND LOCKED, HOB ELEVATED IN SEMI FOWLERS, SIDE RAILS UP X2, CALL LIGHT WITHIN REACH. WILL CONTINUE TO MONITOR THROUGHOUT SHIFT.
[2020-11-26 20:00] VITALS: BP 154/98
[2020-11-26] MEDS ORDERED: FLUCONAZOLE (100 MG) 100 MG TABLET PO SCH (22:00)
[2020-11-27 04:00] VITALS: BP 100/77
[2020-11-27] MEDS: IBUPROFEN 600 MG TABLET PO SCH ×3 (05:47→20:32)
[2020-11-27] MEDS: PIPERACILLIN /TAZOBACTAM 3.375 G in IV D5W 100 ML IV SCH (05:47)
[2020-11-27] MEDS: ACETAMINOPHEN 325 MG TABLET PO SCH ×3 (05:47→20:32)
[2020-11-27] MEDS: GABAPENTIN 300 MG CAPSULE PO SCH ×3 (05:47→20:32)
[2020-11-27] MEDS: IV LR 1000 ML 1,000 ML IV PRN (05:49)
[2020-11-27 06:19] LABS: BASOPHILS % (AUTO) 0.3 % (0.0-2.0); HEMATOCRIT 34 % (39-51); HEMOGLOBIN 11.4 g/dL (13.5-17.5); LYMPHOCYTES # (AUTO) 1.4 /CMM (0.8-4.8); LYMPHOCYTES % (AUTO) 9.9 % (20.0-44.0); MEAN CORPUSCULAR HGB CONC 33 g/dl (31.0-36.0); MEAN CORPUSCULAR VOLUME 87 fL (80-96); MONOCYTES # (AUTO) 1.4 /CMM (0.1-1.30); NEUTROPHILS # (AUTO) 10.8 /CMM (1.8-8.9); NEUTROPHILS % (AUTO) 78.8 % (43.0-81.0); PLATELET COUNT (AUTO) 203 /CMM (150-450); RED BLOOD CELL COUNT(AUTO) 3.96 MIL/uL (4.5-6.0); WHITE BLOOD COUNT (AUTO) 13.8 K/uL (4.3-11.0)
[2020-11-27 07:16] LABS: CALCIUM, SERUM 7.6 mg/dL (8.5-10.1); CREATININE 0.6 mg/dL (0.6-1.3); MAGNESIUM 1.8 mg/dL (1.8-2.4); POTASSIUM 3.7 mmol/L (3.5-5.1)
--- NOTE | 2020-11-27 07:20 | NUR ---
RN OPENING NOTES RECEIVED PT IN BED. A/O X3. ON 2L O2 VIA NC SATURATING @98%. NO SOB OR ANY SIGNS OF RESPIRATORY DISTRESS NOTED. IV ACCESS AT LAC #20 AND RFA #20 BOTH INTACT AND PATENT. IVF OF LR RUNNING @125ML/HR, INFUSING WELL. COBIAN CATHETER IN PLACE, DRAINING YELLOW AND CLEAR URINE. LLQ COLOSTOMY IN PLACE. LEFT KNEE WOUND AND ABD INCISION DRESSING INTACT. SAFETY MEASURES IN PLACE. CALL LIGHT WITHIN REACH. BED LOCKED AND AT LOWEST POSITION WITH SIDE RAILS UP X2. HOB ELEVATED. WILL CONTINUE TO MONITOR.
--- NOTE | 2020-11-27 07:34 | NUR ---
MS RN CLOSING NOTE PATIENT RESTING IN BED. A/OX3. ON OXYGEN 2L/MIN VIA NASAL CANNULA.NO RESP DISTRESS. CONCERN FOR HIS NEXT METHADONE PILL, INFORMED DUE AT 0900.NO DISTRESS. IV ACCESS IN LAC#20 AND RFA#20 RUNNING LR@125ML/HR. COBIAN CATHETER DRAINING TO GRAVITY. BED REMAINS LOW AND LOCKED, HOB ELEVATED IN SEMI FOWLERS, SIDE RAILS UP X2, CALL LIGHT WITHIN REACH. WILL ENDORSE TO ONCOMING SHIFT.
[2020-11-27 08:00] VITALS: BP 117/75
[2020-11-27] MEDS: ENSURE ENLIVE CHOC 237 ML CAN PO SCH ×3 (08:00→17:26)
[2020-11-27] MEDS: PANTOPRAZOLE 40 MG VIAL IV SCH (08:59)
[2020-11-27] MEDS: METHADONE HCL 10 MG TABLET PO SCH (09:00)
[2020-11-27 16:00] VITALS: BP 136/87
--- NOTE | 2020-11-27 18:41 | NUR ---
RN CLOSING NOTES NO SIGNIFICANT CHANGES NOTED. NO SOB. ALL MEDS GIVEN ORDERED. KEPT COMFORTABLE. NOT IN DISTRESS. WILL ENDORSE TO NIGHT RN FOR CONTINUITY OF CARE.
--- NOTE | 2020-11-27 19:30 | NUR ---
MS RN OPENING NOTE PATIENT IN BED. A/OX3. OXYGEN 2L/MIN VIA NASAL CANNULA. RESP EVEN AND UNLABORED. NO C/O PAIN AT THIS TIME. IN NO APPARENT DISTRESS. IV ACCESS IN LAC#20 AND RFA#20. COBIAN CATHETER DRAINING TO GRAVITY. BED IS LOW AND LOCKED, HOB ELEVATED IN SEMI FOWLERS, SIDE RAILS UP X2, CALL LIGHT WITHIN REACH. WILL CONTINUE TO MONITOR THROUGHOUT SHIFT.
[2020-11-27 20:00] VITALS: BP 104/73
[2020-11-28 04:00] VITALS: BP 144/66
[2020-11-28] MEDS: IBUPROFEN 600 MG TABLET PO SCH ×2 (05:37→13:45)
[2020-11-28] MEDS: GABAPENTIN 300 MG CAPSULE PO SCH ×2 (05:37→13:46)
[2020-11-28] MEDS: ACETAMINOPHEN 325 MG TABLET PO SCH ×2 (05:37→13:45)
--- NOTE | 2020-11-28 06:20 | NUR ---
MS RN CLOSING NOTE RESTING IN BED. A/OX3. ON OXYGEN 2L/MIN VIA NASAL CANNULA ON AND OFF THROUGHOUT SHIFT, INFORMED TO KEEP ON. NO RESP DISTRESS. NO C/O PAIN. NO DISTRESS. IV ACCESS IN LAC#20 AND RFA#20 MAINTAINED. COBIAN CATHETER MAINTAINED OUTPUT 200ML. BED IS LOW AND LOCKED, HOB ELEVATED IN SEMI FOWLERS, SIDE RAILS UP X2, CALL LIGHT WITHIN REACH. WILL ENDORSE TO ONCOMING SHIFT.
--- NOTE | 2020-11-28 07:30 | NUR ---
RN OPENING NOTE PT RECEIVED IN BED, HIGH FOWLERS ON NC 2LPM, NO SIGNS OF RESP DEPRESSION OR SOB NOTED. PT A/Ox4 BUT HAS MOMENTS WHERE HE FORGETS. PT HAS COLOSTOMY IN LLQ WITH NO STOOL FORMATION, CLEAR LIQUID NOTED, ABD INCISION COVERED WITH DRY CLEAN DRSG, LT KNEE ABRASION. PT LAC #20 AND RFA #20 BOTH SL, FLUSHED, PATENT AND INTACT WITH NO SIGNS OF INFECTION/INFILTRATION. PT COBIAN CATH DRAINING CLEAR SUZI URINE TO GRAVITY. PT REMINDED TO USE INCENTIVE SPIROMETER AND INSTRUCTIONS PROVIDED ON HOW TO USE, PT UNDERSTANDS, WILL REMIND THROUGHOUT SHIFT. ALL PT SAFETY PRECAUTIONS IN PLACE, BED LOCKED AND IN LOWEST POSITION, PT HOB MORALES'S, PT BED ALARM ON, CALL LIGHT WITHIN REACH. WILL CONT TO MONITOR
[2020-11-28 08:00] VITALS: BP 145/89
[2020-11-28] MEDS: ENSURE ENLIVE CHOC 237 ML CAN PO SCH ×3 (08:51→17:00)
[2020-11-28] MEDS: METHADONE HCL 10 MG TABLET PO SCH (08:51)
[2020-11-28] MEDS ORDERED: PANTOPRAZOLE 40 MG TABLET.DR PO SCH (09:00)
[2020-11-28 16:00] VITALS: BP 134/74
--- NOTE | 2020-11-28 16:46 | NUR ---
RN NOTE US BLADDER SCAN SHOWS 131cc URINE RETENTION. UASTEN INFORMED, OK TO DC PT
--- NOTE | 2020-11-28 18:15 | NUR ---
RN NOTE PT REPORT GIVEN TO EDWINA GALLEGO, AT [facility] Addendum: 11/28/20 at 1928 by JENNIFER MORROW RN SH[facility] MCCARTY
--- NOTE | 2020-11-28 19:15 | NUR ---
PT DISCHARGED, REPORT GIVEN TO AMBULANCE. PT IN STABLE CONDITION
== END 2020-11-28 19:25 | DRG 329 ==
LOC: ER 15:03 → TELE 19:41 → ICU 11-21 20:21 → TELE1 11-23 12:47 → MEDSG1 11-23 13:14
PROVIDERS: ADMIT Nurse Practitioner Family; ATTEND Nurse Practitioner Acute Care
PROC: 0DBN0ZZ Excision of Sigmoid Colon, Open Approach (ICD-10-PCS; principal; 2020-11-21)
PROC: 0DBP0ZZ Excision of Rectum, Open Approach (ICD-10-PCS; 2020-11-21)
PROC: 0D1N0Z4 Bypass Sigmoid Colon to Cutaneous, Open Approach (ICD-10-PCS; 2020-11-21)
PROC: 0BH18EZ Insertion of Endotracheal Airway into Trachea, Via Natural or Artificial Opening Endoscopic (ICD-10-PCS; 2020-11-21)
PROC: 5A1935Z Respiratory Ventilation, Less than 24 Consecutive Hours (ICD-10-PCS; 2020-11-21)
DX: K63.1 Perforation of intestine (nontraumatic) (principal); K65.9 Peritonitis, unspecified; J96.00 Acute respiratory failure, unspecified whether with hypoxia or hypercapnia; E43 Unspecified severe protein-calorie malnutrition; K56.7 Ileus, unspecified; E87.1 Hypo-osmolality and hyponatremia; E44.1 Mild protein-calorie malnutrition; E87.2 Acidosis; R18.8 Other ascites; R64 Cachexia; K62.89 Other specified diseases of anus and rectum; K52.9 Noninfective gastroenteritis and colitis, unspecified; K59.81 Ogilvie syndrome; K59.00 Constipation, unspecified; Z20.822 Contact with and (suspected) exposure to COVID-19; E83.42 Hypomagnesemia; Z87.442 Personal history of urinary calculi; Z98.890 Other specified postprocedural states; E87.6 Hypokalemia; E87.8 Other disorders of electrolyte and fluid balance, not elsewhere classified; G89.4 Chronic pain syndrome; F11.11 Opioid abuse, in remission; D63.8 Anemia in other chronic diseases classified elsewhere; H26.9 Unspecified cataract; N20.0 Calculus of kidney
CPT/HCPCS: 31720; 36415; 36600; 71045-TC; 76856-TC; 80048-TC; 80061-TC; 80076-TC; 81001; 82803-TC; 83605-TC; 83690-TC; 83735-TC; 84100-TC; 84132-TC; 85025-TC; 85730-TC; 87040-TC; 87081-TC; 88307-TC; 94002-TC; 94799-TC; 97116-TC; 97530-TC; A4216; A6253; A9563; C9113; C9803; G0378; J0690; J1170; J1450; J1885; J2250; J2270; J2405; J2543; J2704; J2765; J3010; J3430; J3475; J3480; J3490; J7030; J7040; J7050; J7060; J7120; Q9963; Q9967

== ENCOUNTER 2021-02-09 17:33 | Emergency (ER) | payer MEDICARE, OTHER ==
[~2021-02-09] VITALS: Ht 172.7 cm; Wt 41.7 kg
[~2021-02-09 17:33] MED LIST: METH10TA2 PO
--- NOTE | 2021-02-09 17:42 | NUR ---
[id number]. C/O L INGUINAL PAIN OF 6/10 X 3 DAYS. AOX4, NO SOB NOTED, NO S/O ANY ACUTE DISTRESS NOTED. KEPT COMFORTABLE IN BED. WILL CONTINUE TO MONITOR
--- NOTE | 2021-02-09 17:58 | NUR ---
PT NOTED WITH COLOSTOMY BAG
[2021-02-09] MEDS ORDERED: KETOROLAC TROMETHAMINE 15 MG/ML VIAL ONE (18:49)
--- NOTE | 2021-02-09 19:00 | NUR ---
PIV IN RAC G#18, GOOD BLOOD RETURN NOTED, INTACT, PATENT AND FLUSHING WELL. PT TOLERATED WELL. WILL CONTINUE TO MONITOR
[2021-02-09] MEDS: IV NS 0.9% 1,000 ML BAG IV ONE (19:04)
[2021-02-09] MEDS: KETOROLAC TROMETHAMINE INJ 30 MG/ML VIAL IV ONE (19:05)
[2021-02-09 19:26] LABS: CALCIUM, SERUM 9.1 mg/dL (8.5-10.1); CREATININE 0.8 mg/dL (0.6-1.3)
--- NOTE | 2021-02-09 19:30 | NUR ---
RECEIVED REPORT FOR KRISTINA, PATIENT VSS, IN NO ACUTE DISTRESS.
--- NOTE | 2021-02-09 19:37 | NUR ---
called for ct. per dr. lopez, make take patient to CT without bun/creat result
[2021-02-09] MEDS ORDERED: IOHEXOL-300 100 ML VIAL IV ONE (19:42)
[2021-02-09] MEDS ORDERED: IV NS 0.9% 250 ML IV ONE (19:42)
[2021-02-09] MEDS ORDERED: CT SWABBABLE VALVE TRANS SET 1 EA INFUS.SET MC ONE (19:43)
[2021-02-09 19:45] LABS: ALBUMIN 3.5 g/dL (3.4-5.0); BILIRUBIN,DIRECT 0.2 mg/dL (0.0-0.2); BILIRUBIN,TOTAL 0.3 mg/dL (0.2-1.0)
[2021-02-09 19:48] LABS: BASOPHILS % (AUTO) 0.6 % (0.0-2.0); EOSINOPHILS % (AUTO) 0.2 % (0.0-6.0); HEMATOCRIT 35 % (39-51); HEMOGLOBIN 11.3 g/dL (13.5-17.5); LYMPHOCYTES # (AUTO) 1.7 K/uL (0.8-4.8); LYMPHOCYTES % (AUTO) 26.9 % (20.0-44.0); MEAN CORPUSCULAR HGB CONC 32 g/dl (31.0-36.0); MEAN CORPUSCULAR VOLUME 86 fL (80-96); MONOCYTES # (AUTO) 0.6 K/uL (0.1-1.30); MONOCYTES % (AUTO) 8.9 % (2.0-12.0); NEUTROPHILS # (AUTO) 4.1 K/uL (1.8-8.9); NEUTROPHILS % (AUTO) 63.4 % (43.0-81.0); PLATELET COUNT (AUTO) 295 K/uL (150-450); RED BLOOD CELL COUNT(AUTO) 4.13 MIL/uL (4.5-6.0); WHITE BLOOD COUNT (AUTO) 6.5 K/uL (4.3-11.0)
--- NOTE | 2021-02-09 21:01 | NUR ---
YINA, CALLED BACK #,
--- NOTE | 2021-02-09 21:07 | NUR ---
called the radiology department to call the radiologist to read the CT of the pelvis
--- NOTE | 2021-02-09 21:32 | NUR ---
called the radiology department to call the radiologist to read the CT of the pelvis
[2021-02-09] MEDS ORDERED: NAPR-1009 PO (21:44)
[2021-02-09 22:03] VITALS: BP 141/71
--- NOTE | 2021-02-09 22:04 | NUR ---
Patient discharged to home in stable condition. Rx and Written and verbal after care instructions given. Patient verbalizes understanding of instruction.
== END 2021-02-09 22:04 | disposition home or self-care (01) ==
LOC: ER 17:35
DX: R10.32 Left lower quadrant pain (principal); D64.9 Anemia, unspecified; Z93.3 Colostomy status; Z87.442 Personal history of urinary calculi; Z90.89 Acquired absence of other organs; Z79.899 Other long term (current) drug therapy
CPT/HCPCS: 36415; 74177; 80048; 80076; 83690; 85025; 85730; 96361; 96374; 99285; J1885; J7030; J7050; Q9967